=== PATIENT | male | born 1985 | race Caucasian/White ===

== ENCOUNTER 2017-02-10 02:05 | Emergency (ER) | payer SELFPAY ==
[~2017-02-10] VITALS: Ht 170.2 cm; Wt 90.7 kg
[2017-02-10 02:12] VITALS: BP 135/100
[2017-02-10] MEDS ORDERED: NACL 0.9% 500 ML IV ONE ×2 (02:16)
--- NOTE | 2017-02-10 02:18 | NUR ---
TO ER BED 07
[2017-02-10] MEDS ORDERED: ONDANSETRON 4 MG/2 ML VIAL IVP ONE (02:20)
--- NOTE | 2017-02-10 02:20 | NUR ---
31Y/M PT. PRESENT TO ED WITH C/O LT. FLANK PAIN X 4 DAYS. PT. STATES WENT TO SEE PMD, DIAGNOSED KIDNEY STONE. AAO X4, AMBULATORY WITH STEADY GAIT. RESPIRATIONS ROOM AIR, EVEN AND UNLABORED. SKIN WARM AND DRY TO TOUCH. C/O PAIN 03/23. VSS, ER MADE AWARE OF PT. STATUS.
--- NOTE | 2017-02-10 02:27 | NUR ---
Patient being evaluated by physician at bedside.
[2017-02-10] MEDS ORDERED: MORPHINE SULFATE 2 MG/ML SYR IVP ONE (02:30)
[2017-02-10] MEDS ORDERED: HYDROmorphone 1 MG/ML AMP IVP ONE (02:50)
[2017-02-10] MEDS ORDERED: HYDROmorphone PFS 2 MG/ML SYR IVP ONE (03:05)
[2017-02-10] MEDS ORDERED: LORazepam 2 MG/ML VIAL IVP ONE (04:15)
[2017-02-10 05:22] VITALS: BP 117/69
--- NOTE | 2017-02-10 05:22 | NUR ---
Patient discharged with v/s stable. Written and verbal after care instructions given and explained. Patient verbalized understanding. Ambulatory with to car. All questions addressed prior to discharge. Advised to follow up with PMD.
== END 2017-02-10 05:22 | disposition home or self-care (01) ==
LOC: MED 02:05
DX: N20.0 Calculus of kidney (principal); R03.0 Elevated blood-pressure reading, without diagnosis of hypertension; Z88.8 Allergy status to other drugs, medicaments and biological substances; Z91.041 Radiographic dye allergy status
CPT/HCPCS: 74176; 96361; 96374; 96375; 99285; J1170; J2060; J2270; J2405; J7030